=== PATIENT | female | born 1965 | race Caucasian/White ===

== ENCOUNTER 2023-11-14 15:57 | Emergency (ER) | payer BC, SELFPAY ==
[2023-11-14] VITALS (9 sets, daily range): BP systolic 105–146; BP diastolic 64–77; PULSE 60–67; TEMP 36.5; O2SAT 95–96; BMI 43.9
[2023-11-14 16:12] LABS: Glucometer 189 mg/dL (74-106)
--- NOTE | 2023-11-14 16:26 | ECG_ITS ---
[facility] Test Date: 2023-11-14 Pat Name: GAY VALENZUELA Department: Room: - Gender: Female Guest Service Team Leader: : 1965 Requested By: Order Number: [id number] Reading MD: RONEN JACOBS Measurements Intervals [place] Rate: 66 P: 40 SC: 198 QRS: 6 QRSD: 86 T: 63 QT: 424 QTc: 437 Interpretive Statements 1100 Sinus rhythm 8102 Low QRS voltage in chest leads 9120 atypical ECG No previous ECG available for comparison Electronically Signed On 11-15-2023 6:47:17 EDT by RONEN JACOBS
[2023-11-14 16:41] LABS: Basophils Absolute Auto 0.1 10^3/uL (0.0-0.1); Basophils Percent Auto 0.4 % (0.2-2.0); Eosinophils Absolute Auto 0.1 10^3/uL (0.0-0.7); Eosinophils Percent Auto 0.8 % (0.9-7.0); Hematocrit 43.4 % (36.0-48.0); Hemoglobin 14.6 g/dL (12.0-16.0); Immature Granulocytes Abs Auto 0.09 10^3/uL (0.00-0.03); Immature Granulocytes Pct Auto 0.6 % (0.0-0.5); Lymphocytes Absolute Auto 3.9 10^3/uL (1.2-3.8); Lymphocytes Percent Auto 24.1 % (20.5-60.0); Mean Corpuscular HGB Conc 33.6 g/dL (29.9-35.2); Mean Corpuscular Hemoglobin 30.9 pg (26.7-34.0); Mean Corpuscular Volume 91.9 fL (81.0-99.0); Mean Platelet Volume 10.8 fL (9.5-13.5); Monocytes Percent Auto 6.1 % (1.7-12.0); Platelet Count 322 10^3/uL (150-450); Red Blood Count 4.72 10^6/uL (4.20-5.40); Red Cell Distribution Width 13.1 % (11.0-15.0); White Blood Count 16.1 10^3/uL (4.0-11.0)
[2023-11-14] MEDS: 0.9 % SODIUM CHLORIDE 1,000 ML 999 ML IV (16:44)
[2023-11-14] MEDS: ONDANSETRON PF 4 MG/2 ML VIAL IV (16:45)
[2023-11-14] MEDS: FAMOTIDINE/PF 20 MG/2 ML VIAL IV (16:46)
[2023-11-14 16:58] LABS: Alanine Aminotransferase 27 U/L (14-59); Albumin Globulin Ratio 0.9; Albumin Level 3.4 g/dL (3.4-5.0); Alkaline Phosphatase 136 U/L (46-116); Anion Gap 14.5; Aspartate Amino Transferase 13 U/L (15-37); BUN Creatinine Ratio 21.1; Bilirubin Total 0.7 mg/dL (0.2-1.0); Calcium 10.5 mg/dL (8.5-10.1); Carbon Dioxide 26.8 mmol/L (21.0-32.0); Chloride 100 mmol/L (98-107); Estimated GFR (African America 44 (>=60); Estimated GFR (Non-African Ame 36 (>=60); Globulin 3.8 g/dL; Glucose 205 mg/dL (74-106); Magnesium 1.6 mg/dL (1.8-2.4); Potassium 3.3 mmol/L (3.5-5.1); Sodium 138 mmol/L (136-145); Total Protein 7.2 g/dL (6.4-8.2)
[2023-11-14] MEDS: MAGNESIUM SULFATE/D5W 1 GM/100 ML PREMIX IV (17:11)
[2023-11-14] MEDS: POTASSIUM CHLORIDE 10 MEQ ER TABLET 40 MEQ PO (18:09)
--- NOTE | 2023-11-14 18:54 | ED_ITS ---
HPI HPI - General Adult General Chief complaint: Dizziness Stated complaint: Dizziness Time Seen by Provider: 11/14/23 16:06 Source: patient and family () Mode of arrival: Wheelchair Limitations: no limitations History of Present Illness HPI narrative: 58-year-old female presents to the emergency department with with complaint of diarrhea, nausea. Acute onset after she ate food from [employer] at a rest stop shortly prior to arrival. States she took couple bites, was overcome with the nausea, went to the bathroom where she had some diarrhea. After couple episodes of diarrhea, developed some dizziness. She called her daughter and was advised to present to the emergency department for evaluation. She did have an uncomfortable abdomen, now only feels like it is sour. Overall has improved since initial onset of symptoms. Denies any fever, chills, abdominal pain, vomiting. Quality:?as above Severity:?moderate Timing:?as above, improving Context: Normal setting and activity? Modifying factors:?none Associated symptoms: as above Related Data Home Medications ?Medication ?Instructions ?Recorded ?Confirmed amlodipine 10 mg tablet 10 mg PO DAILY 11/14/23 11/14/23 atenolol 100 mg tablet 100 mg PO DAILY 11/14/23 11/14/23 atorvastatin 20 mg tablet 20 mg PO DAILY 11/14/23 11/14/23 clonidine HCl 0.2 mg tablet 0.2 mg PO DAILY 11/14/23 11/14/23 losartan 100 mg tablet 100 mg PO DAILY 11/14/23 11/14/23 metformin 500 mg tablet,extended 1,000 mg PO DAILY 11/14/23 11/14/23 release 24 hr Previous Rx's ?Medication ?Instructions ?Recorded famotidine 20 mg tablet (Pepcid) 20 mg PO BID #20 tabs 11/14/23 ondansetron 4 mg disintegrating 4 mg PO DAILY PRN nausea and 11/14/23 tablet vomiting #14 tabs Allergies Allergy/AdvReac Type Severity Reaction Status Date / Time No Known Drug Allergies Allergy Verified 11/14/23 16:11 Opioid HPI Opioid Management Most Recent Opioid Data: No Data to Display Review of Systems ROS Constitutional Reports: malaise; Denies: fever, chills or fatigue Cardiovascular Denies: chest pain or shortness of breath with exertion Respiratory Denies: shortness of breath or cough Gastrointestinal Reports: nausea and diarrhea; Denies: abdominal pain or vomiting Genitourinary Denies: painful urination or urinary frequency Musculoskeletal Denies: joint pain Neurological Reports: dizziness; Denies: headache Endocrine Reports: fatigue [facility] Social History Little interest or pleasure in doing things: not at all Feeling down, depressed, or hopeless: not at all Exam Constitutional Vital Signs, click to edit/add: Last Vital Signs Temp 97.7 F 11/14/23 16:07 Pulse 60 11/14/23 18:30 Resp 21 H 11/14/23 18:30 BP 146/72 H 11/14/23 18:30 Pulse Ox 95 11/14/23 16:09 O2 Del Method Room Air 11/14/23 16:07 Common normals: no apparent distress, oriented x3 and alert HENMT Common normals: normocephalic, head/scalp atraumatic and external nose normal Head and scalp: normocephalic and atraumatic Nose: external nose normal Respiratory Common normals: normal respiratory effort and clear to auscultation bilaterally Auscultation: clear to auscultation bilaterally Cardio Common normals: regular rate, regular rhythm and no murmurs Rate: regular rate Rhythm: regular rhythm GI Common normals: soft to palpation and non-tender Inspection: normal to inspection Palpation: soft Extremity Common normals: normal to inspection Neuro Common normals: oriented x3, no focal motor deficits, no sensory deficits noted and gait normal Sensorium/orientation: alert Psych Common normals: thought process normal, cooperative and affect normal Thought process: normal thought process Course Vital Signs Vital signs: Vital Signs Temperature 97.7 F 11/14/23 16:07 Pulse Rate 67 11/14/23 16:07 Respiratory Rate 18 11/14/23 16:07 Blood Pressure 105/71 11/14/23 16:07 Pulse Oximetry 96 11/14/23 16:07 Oxygen Delivery Method Room Air 11/14/23 16:07 Temperature 97.7 F 11/14/23 16:07 Pulse Rate 60 11/14/23 18:30 Respiratory Rate 21 H 11/14/23 18:30 Blood Pressure 146/72 H 11/14/23 18:30 Pulse Oximetry 95 11/14/23 16:09 Oxygen Delivery Method Room Air 11/14/23 16:07 Medical Decision Making MDM Narrative Medical decision making narrative: This is a pleasant 58-year-old female who presents to the emergency department with her with complaint of acute onset of diarrhea, nausea followed by some dizziness shortly prior to arrival. Onset of symptoms immediately after she had started eating at a restaurant and had a rest. Did have an uncomfortable abdomen, now only reported to be somewhat upset, sour. Denies any pain. Denies any fever, chills. On arrival, afebrile, vital signs are stable. On exam, nontoxic and well-appearing patient in no distress. Abdomen soft, nontender, nondistended. No other concerning findings on exam. EKG reveals no acute or concerning changes. Labs reveal leukocytosis of 16. No focal findings of infection, suggestive of reactive. No cough, congestion, dysuria, frequency, flank pain, back pain, abdominal pain. No anemia, thrombocytopenia. Potassium 3.3, otherwise no electrolyte imbalance. BUN and creatinine were a little elevated at 31 and 1.47. Patient was given. Glucose 205. Magnesium 1.6. She was given dose of magnesium during ED course. LFTs unremarkable. History and record review Discussion with independent historian: Spouse. No additional records available Favor food related illness, diarrhea which brought on some dizziness. Hypomagnesemia ACS less likely denies chest pain. No concerning changes on EKG Acute abdomen less likely as patient denies any pain, tenderness on exam. Additional testing interventions ECG: See below, IV fluids due to hydration needs Reevaluation: See above ED course Disposition ? The patient was discharged. Plan: Patient will be discharged to home. Condition at time of disposition: stable She was given prescription for Pepcid and Zofran. Advised clear liquid diet over the next 24 hours and progress as tolerated. Advised to follow up with primary provider. Advised to return for any worsening and/or development of new, concerning signs or symptoms PLEASE NOTE: Portions of the medical record may have been produced using electronic legal transcriptionist and may contain errors with respect to translation of words which may not have been identified prior to finalization of the chart. Medical Records Medical records reviewed: Yes I reviewed the patient's medical records Lab Data Lab results reviewed: Yes I reviewed the patient's lab results Labs: Lab Results 11/14/23 11/14/23 Range/Units 16:12 16:34 WBC 16.1 H (4.0-11.0) 10^3/uL RBC 4.72 (4.20-5.40) 10^6/uL Hgb 14.6 (12.0-16.0) g/dL Hct 43.4 (36.0-48.0) % MCV 91.9 (81.0-99.0) fL MCH 30.9 (26.7-34.0) pg MCHC 33.6 (29.9-35.2) g/dL RDW 13.1 (11.0-15.0) % Plt Count 322 (150-450) 10^3/uL MPV 10.8 (9.5-13.5) fL Neut % (Auto) 68.0 (43.0-75.0) % Lymph % (Auto) 24.1 (20.5-60.0) % [place] % (Auto) 6.1 (1.7-12.0) % Eos % (Auto) 0.8 L (0.9-7.0) % Baso % (Auto) 0.4 (0.2-2.0) % Neut # (Auto) 11.0 H (1.4-6.5) 10^3/uL Lymph # (Auto) 3.9 H (1.2-3.8) 10^3/uL [place] # (Auto) 1.0 H (0.3-0.8) 10^3/uL Eos # (Auto) 0.1 (0.0-0.7) 10^3/uL Baso # (Auto) 0.1 (0.0-0.1) 10^3/uL Abs Immat Gran (auto) 0.09 H (0.00-0.03) 10^3/uL Imm/Tot Granulo (auto) 0.6 H (0.0-0.5) % Sodium 138 (136-145) mmol/L Potassium 3.3 L (3.5-5.1) mmol/L Chloride 100 (98-107) mmol/L Carbon Dioxide 26.8 (21.0-32.0) mmol/L Anion Gap 14.5 BUN 31.0 H (7.0-18.0) mg/dL Creatinine 1.47 H (0.55-1.02) mg/dL Est GFR ( Amer) 44 L (>=60) Est GFR (Non-Af Amer) 36 L (>=60) BUN/Creatinine Ratio 21.1 Glucose 205 H (74-106) mg/dL Calcium 10.5 H (8.5-10.1) mg/dL Magnesium 1.6 L (1.8-2.4) mg/dL Total Bilirubin 0.7 (0.2-1.0) mg/dL AST 13 L (15-37) U/L ALT 27 (14-59) U/L Alkaline Phosphatase 136 H (46-116) U/L Total Protein 7.2 (6.4-8.2) g/dL Albumin 3.4 (3.4-5.0) g/dL Globulin 3.8 g/dL Albumin/Globulin Ratio 0.9 Lipase 64.0 (16.0-77.0) U/L POC Glucose 189 H (74-106) mg/dL ECG Data Attestation: I personally reviewed and interpreted this ECG as follows: (EKG performed at 1642 hrs. reveals sinus rhythm at 66 bpm. No ischemia or ectopy noted. No ST elevation. Normal axis.) Discharge Plan Discharge Chief Complaint: Dizziness Clinical Impression: Diarrhea, Nausea, Dizziness Patient Disposition: Home, Self-Care Time of Disposition Decision: 18:56 Condition: Good Mode of Transportation: Private Vehicle Prescriptions / Home Meds: New famotidine [Pepcid] 20 mg tablet 20 mg PO BID Qty: 20 0RF ondansetron 4 mg tablet,disintegrating 4 mg PO DAILY PRN (Reason: nausea and vomiting) Qty: 14 0RF No Action amlodipine 10 mg tablet 10 mg PO DAILY atenolol 100 mg tablet 100 mg PO DAILY atorvastatin 20 mg tablet 20 mg PO DAILY clonidine HCl 0.2 mg tablet 0.2 mg PO DAILY losartan 100 mg tablet 100 mg PO DAILY metformin 500 mg tablet extended release 24 hr 1,000 mg PO DAILY Print Language: Jordanian Instructions: Acute Nausea and Vomiting (ED), Acute Diarrhea (ED), Dizziness (ED) Referrals: Physician,Non-Staff, MD [Primary Care Provider] - 1 week Discharge Date/Time: 11/14/23 19:05
== END 2023-11-14 19:05 | disposition home or self-care (01) ==
PROVIDERS: Physician Assistant; Emergency Provider Emergency Medicine
DX: R42 Dizziness and giddiness (principal); R19.7 Diarrhea, unspecified; R11.0 Nausea
CPT/HCPCS: 36415; 80053; 83690; 83735; 85025; 93005; 96365; 96375; 99285; J2405; J3475